=== PATIENT | male | born 1995 | race African-American/Black ===

== ENCOUNTER 2017-03-07 15:23 | Emergency (ER) | payer SELFPAY ==
[~2017-03-07] VITALS: Ht 177.8 cm; Wt 100.0 kg
[2017-03-07 17:50] VITALS: BP 136/53
[2017-03-07 18:20] LABS: CLARITY URINE CLEAR (CLEAR); COLOR URINE YELLOW (YELLOW); GLUCOSE URINE NEGATIVE (NEGATIVE); KETONES URINE TRACE (NEGATIVE); LEUKOCYTE ESTERASE URINE TRACE (NEGATIVE); NITRITE URINE NEGATIVE (NEGATIVE); OCCULT BLOOD URINE NEGATIVE (NEGATIVE); PROTEIN URINE 1+ (NEGATIVE); SPECIFIC GRAVITY URINE 1.037 (1.005-1.030)
[2017-03-07] MEDS ORDERED: LIDOCAINE HCL 1% 20ML VIAL (Pyxis) INJ INFIL ONE (18:45)
[2017-03-07] MEDS ORDERED: AZITHROMYCIN 500 MG TABLET PO ONE (18:45)
[2017-03-07] MEDS ORDERED: CEFTRIAXONE SODIUM 250 MG/VIAL IM ONE (18:45)
[2017-03-10 04:17] LABS: CHLAMYDIA TRACHOMATIS NAA Negative (Negative); NEISSERIA GONORRHOEAE NAA Negative (Negative)
== END 2017-03-07 17:50 | disposition left against medical advice (07) ==
LOC: ER 15:23
DX: N39.0 Urinary tract infection, site not specified (principal); F12.10 Cannabis abuse, uncomplicated; F17.290 Nicotine dependence, other tobacco product, uncomplicated
CPT/HCPCS: 81001; 87491; 87591; 99284; 99406; Z7610

== ENCOUNTER 2018-04-05 06:01 | Emergency (ER) | payer OTHER, MEDICAID ==
[~2018-04-05] VITALS: Ht 177.8 cm; Wt 94.0 kg
[2018-04-05 06:13] VITALS: BP 137/69
== END 2018-04-05 11:00 | disposition left against medical advice (07) ==
LOC: ER 10:44
DX: A64 Unspecified sexually transmitted disease (principal); F17.200 Nicotine dependence, unspecified, uncomplicated; F12.10 Cannabis abuse, uncomplicated; R30.0 Dysuria; F14.10 Cocaine abuse, uncomplicated; R39.15 Urgency of urination; Z98.890 Other specified postprocedural states
CPT/HCPCS: 99281